=== PATIENT | female | born 1950 | race Caucasian/White ===

== ENCOUNTER 2020-02-03 06:04 | Inpatient (IN) ==
[2020-01-29 12:03] LABS: Basophils # 0.1 10*3/uL (0.0-0.2); Basophils % 1.4 % (0.0-0.8); Eosinophils % 0.6 % (0.00-10.9); Hematocrit 44.3 VOL% (35.7-47.0); Hemoglobin 14.6 GM/DL (12.0-16.0); Immature Granulocytes % 0.1 %; Immature Granulocytes Absolute 0.01 #; Lymphocytes # 1.4 10*3/uL (1.4-4.0); Lymphocytes % 20.6 % (21.3-54.2); Mean Platelet Volume 12.1 FL (9.6-12.0); Monocytes % 8.9 % (1.7-12.7); Neutrophils % 68.4 % (38.7-73.9); Platelet Count 245 T/CUMM (130-400); Red Blood Count 5.15 MC/CUMM (3.8-5.5); Red Cell Distribution Width 12.9 % (9.3-17.3); White Blood Count 6.9 T/CUMM (4-12)
[2020-01-29 12:13] LABS: PT Patient Result 10.3 SECS (9.8-11.9); Partial Thromboplastin Time 28.2 SECS (23.9-33.8)
[2020-01-29 12:15] LABS: Apearance,Urine CLEAR (Clear); Bilirubin,Urine Negative (Negative); Blood, Urine Negative (Negative); Glucose,Urine (UA) Negative (Negative); Ketones,Urine Negative (Negative); Mucus,Urine Occasional /LPF (Occasional); Nitrite,Urine Negative (Negative); Protein,Urine Negative; RBC,Urine <1 /HPF (0-4); Squamous Epithelial Cell,Urine Occasional /HPF (0-10); Urine Color Yellow (Yellow); Urine Specific Gravity 1.013 (1.001-1.035); Urine Urobilinogen < 2.0 EU/DL (0.2-1.0); WBC,Urine 2 /HPF (0-6)
[2020-01-29 12:29] LABS: Albumin 4.1 G/DL (3.4-5.0); Bilirubin,Total 0.8 MG/DL (0.2-1.0); Calcium 9.8 MG/DL (8.5-10.1); Osmolality,Calculated 277.5 MOS/KG (273-304); Total Protein 7.2 G/DL (6.4-8.3)
[~2020-02-03 06:04] MED LIST: CLINDAMYCIN INJ 50 ML IV ONE; VANCOMYCIN 1,000 MG VIAL ONE; VANCOMYCIN INJ 1,000 MG in SODIUM CHLORIDE 0.9% 250 ML IV ONE
[2020-02-03] MEDS ORDERED: LACTATED RINGERS 1,000 ML IV SCH (07:00)
[2020-02-03] MEDS ORDERED: CLINDAMYCIN INJ 900 MG in PREMIX 1 EACH IV ONE (07:00)
[2020-02-03] MEDS ORDERED: FAMOTIDINE 20 MG TABLET PO ONE (07:07)
[2020-02-03] MEDS ORDERED: DIAZEPAM 5 MG TABLET PO ONE (07:07)
[2020-02-03] MEDS ORDERED: ACETAMINOPHEN 500 MG TABLET PO ONE (07:07)
[2020-02-03] MEDS ORDERED: GABAPENTIN 400 MG CAPSULE PO ONE (07:07)
[2020-02-03] MEDS ORDERED: GABAPENTIN 400 MG CAPSULE ONE (07:26)
[2020-02-03] MEDS ORDERED: FAMOTIDINE 20 MG TABLET ONE (07:26)
[2020-02-03] MEDS ORDERED: DIAZEPAM 5 MG TABLET ONE (07:26)
[2020-02-03] MEDS ORDERED: ACETAMINOPHEN 500 MG TABLET ONE (07:26)
[2020-02-03] MEDS ORDERED: LIDOCAINE 1% 5 ML VIAL ONE (07:40)
[2020-02-03] MEDS ORDERED: DEXMEDETOMIDINE 200 MCG/2 ML VIAL ONE ×2 (07:40→10:22)
[2020-02-03] MEDS ORDERED: DEXAMETHASONE 4 MG/1 ML VIAL ONE (07:40)
[2020-02-03] MEDS ORDERED: ROPIVACAINE 0.5% 30 ML VIAL ONE (07:40)
[2020-02-03] MEDS ORDERED: BUPIVACAINE SPINAL 0.75% 2 ML AMP SPINAL ONE (07:40)
[2020-02-03] MEDS ORDERED: BACITRACIN OINT 0.9 GM PACK TOP ONE (09:20)
[2020-02-03] MEDS ORDERED: MIDAZOLAM 2 MG/2 ML VIAL ONE (10:22)
[2020-02-03] MEDS ORDERED: GLYCOPYRROLATE 0.4 MG/2 ML VIAL ONE (10:22)
[2020-02-03] MEDS ORDERED: ePHEDrine 50 MG/ML VIAL ONE (10:22)
[2020-02-03] MEDS ORDERED: TRANEXAMIC ACID 1,000 MG/10 ML VIAL ONE (10:23)
[2020-02-03 10:24] LABS: Apearance,Urine CLEAR (Clear); Bacteria,Urine Occasional /HPF (Few); Bilirubin,Urine Negative (Negative); Blood, Urine Negative (Negative); Glucose,Urine (UA) Negative (Negative); Ketones,Urine Negative (Negative); Mucus,Urine Occasional /LPF (Occasional); Nitrite,Urine Negative (Negative); Protein,Urine Negative; RBC,Urine 1 /HPF (0-4); Urine Color Yellow (Yellow); Urine Specific Gravity 1.017 (1.001-1.035); Urine Urobilinogen < 2.0 EU/DL (0.2-1.0); WBC,Urine <1 /HPF (0-6)
[2020-02-03] MEDS ORDERED: tiZANidine 4 MG TABLET PO PRN (10:26)
[2020-02-03] MEDS ORDERED: MORPHINE 4 MG/1 ML VIAL IV PRN ×2 (10:27)
[2020-02-03] MEDS ORDERED: diphenhydrAMINE CAP 25 MG CAPSULE PO PRN (10:27)
[2020-02-03] MEDS ORDERED: MAGNESIUM HYDROXIDE SUSP 30 ML UDCUP PO PRN (10:27)
[2020-02-03] MEDS ORDERED: ONDANSETRON 4 MG/2 ML VIAL IV PRN (10:27)
[2020-02-03] MEDS: KETOROLAC 30 MG/1 ML VIAL IV SCH ×3 (15:02→23:17)
[2020-02-03] MEDS: LACTATED RINGERS 1,000 ML IV SCH (15:02)
[2020-02-03] MEDS: CLINDAMYCIN INJ 900 MG in PREMIX 1 EACH IV SCH (18:00)
[2020-02-03] MEDS ORDERED: LITHIUM 300 MG CAPSULE PO SCH (21:00)
[2020-02-03] MEDS ORDERED: LITHIUM 150 MG CAPSULE PO SCH (21:30)
[2020-02-03] MEDS: DOCUSATE SODIUM 100 MG CAPSULE PO SCH (23:15)
[2020-02-03] MEDS: ATORVASTATIN 40 MG TABLET PO SCH (23:15)
[2020-02-03] MEDS: QUEtiapine 100 MG TABLET PO SCH (23:16)
[2020-02-04] MEDS: CLINDAMYCIN INJ 900 MG in PREMIX 1 EACH IV SCH (02:38)
[2020-02-04] MEDS: LACTATED RINGERS 1,000 ML IV SCH ×2 (03:39→06:33)
[2020-02-04] MEDS: KETOROLAC 30 MG/1 ML VIAL IV SCH (04:39)
[2020-02-04] MEDS: FONDAPARINUX 2.5 MG/0.5 ML SYRINGE SUBCUT SCH (04:44)
[2020-02-04 06:23] LABS: Basophils % 0.1 % (0.0-0.8); Hematocrit 33.9 VOL% (35.7-47.0); Hemoglobin 11.4 GM/DL (12.0-16.0); Immature Granulocytes % 0.4 %; Immature Granulocytes Absolute 0.04 #; Lymphocytes # 0.8 10*3/uL (1.4-4.0); Mean Corpuscular HGB Conc 33.6 GM/DL (32-36); Mean Corpuscular Volume 85.4 FL (87-102); Monocytes % 11.9 % (1.7-12.7); Neutrophils % 79.6 % (38.7-73.9); Platelet Count 231 T/CUMM (130-400); Red Blood Count 3.97 MC/CUMM (3.8-5.5); White Blood Count 9.7 T/CUMM (4-12)
[2020-02-04 06:40] LABS: Osmolality,Calculated 282.3 MOS/KG (273-304)
[2020-02-04] MEDS: CHOLECALCIFEROL 5,000 UNIT TABLET PO SCH (10:45)
[2020-02-04] MEDS: DOCUSATE SODIUM 100 MG CAPSULE PO SCH ×2 (10:45→21:45)
[2020-02-04] MEDS ORDERED: LITHIUM 300 MG PO SCH (21:00)
[2020-02-04] MEDS: ATORVASTATIN 40 MG TABLET PO SCH (21:45)
[2020-02-04] MEDS: QUEtiapine 100 MG TABLET PO SCH (21:46)
[2020-02-05] MEDS: FONDAPARINUX 2.5 MG/0.5 ML SYRINGE SUBCUT SCH (05:30)
[2020-02-05 06:57] LABS: Basophils # 0.1 10*3/uL (0.0-0.2); Eosinophils # 0.1 10*3/uL (0.0-0.87); Eosinophils % 1.8 % (0.00-10.9); Hematocrit 32.8 VOL% (35.7-47.0); Hemoglobin 10.7 GM/DL (12.0-16.0); Immature Granulocytes % 0.4 %; Immature Granulocytes Absolute 0.03 #; Lymphocytes # 1.7 10*3/uL (1.4-4.0); Lymphocytes % 25.4 % (21.3-54.2); Mean Corpuscular HGB Conc 32.6 GM/DL (32-36); Mean Corpuscular Volume 88.2 FL (87-102); Mean Platelet Volume 12.1 FL (9.6-12.0); Monocytes % 13.2 % (1.7-12.7); Neutrophils % 58.2 % (38.7-73.9); Platelet Count 178 T/CUMM (130-400); Red Blood Count 3.72 MC/CUMM (3.8-5.5); Red Cell Distribution Width 13.3 % (9.3-17.3); White Blood Count 6.7 T/CUMM (4-12)
[2020-02-05 07:23] VITALS: BP 115/60
[2020-02-05] MEDS: DOCUSATE SODIUM 100 MG CAPSULE PO SCH (08:56)
[2020-02-05] MEDS: CHOLECALCIFEROL 5,000 UNIT TABLET PO SCH (08:56)
== END 2020-02-05 11:15 | disposition home health service (06) | DRG 470 ==
LOC: N.SDSINP 06:04 → N.3E 14:56
PROVIDERS: ADMIT Orthopaedic Surgery; ATTEND Orthopaedic Surgery